=== PATIENT | male | born 1965 | race Caucasian/White ===

== ENCOUNTER 2018-07-16 15:51 | Emergency (ER) | payer OTHER ==
[~2018-07-16] VITALS: Ht 185.4 cm; Wt 108.9 kg
== END 2018-07-17 00:13 | disposition home or self-care (01) ==
LOC: ER 15:51
DX: K62.89 Other specified diseases of anus and rectum (principal)

== ENCOUNTER 2021-07-24 09:43 | Emergency (ER) | payer OTHER ==
[~2021-07-24] VITALS: Ht 177.8 cm; Wt 99.8 kg
== END 2021-07-24 21:22 | disposition home or self-care (01) ==
LOC: EDBD 09:43 → ER 09:43
DX: K29.70 Gastritis, unspecified, without bleeding (principal); I10 Essential (primary) hypertension; E86.0 Dehydration; Z20.822 Contact with and (suspected) exposure to COVID-19